=== PATIENT | male | born 1950 | race Caucasian/White ===

== ENCOUNTER 2020-08-28 13:41 | Emergency (ER) | payer OTHER ==
[2020-08-28 14:15] LABS: BASOPHIL 0.8 % (0-2); EOSINOPHIL 3.1 % (0-7); HCT 42.7 % (42.0-52.0); HGB 14.6 g/dl (13.2-18.0); LYMPHOCYTE 23.5 % (15-48); MCH 29.8 pg (25.0-31.0); MCHC 34.2 g/dL (32.0-36.0); MCV 87.1 fL (78.0-100.0); MONOCYTE 6.9 % (0-12); MPV 10.5 fL (6.0-9.5); NEUTROPHIL 64.2 % (41-80); NRBC 0; PLT 253 K/uL (150-400); RDW 11.9 % (11.5-14.0)
[2020-08-28 14:24] LABS: INR 1.18 (0.9-1.2); PROTHROMBIN TIME 14.2 SECONDS (11.4-13.6); PTT 30.1 SECONDS (22.2-34.7)
[2020-08-28 14:25] LABS: D-DIMER 1.04 ug/mLFEU (0.00-0.41)
[2020-08-28 14:32] LABS: ALBUMIN 2.7 g/dL (3.4-5.0); BILIRUBIN - TOTAL 0.4 mg/dL (0.2-1.0); BUN/CREAT RATIO (CALC) 6.6 RATIO; C-REACTIVE PROTEIN 2.7 mg/dL (<=0.90); CREATININE 0.76 mg/dL (0.67-1.17); GLOBULIN (CALCULATION) 5.1 g/dL; POTASSIUM 3.2 mmol/L (3.5-5.1); TOTAL PROTEIN 7.8 g/dL (6.4-8.2)
[2020-08-28 14:39] LABS: PRO-BNP 181 pg/mL (<125)
[2020-08-28 15:13] LABS: CORONAVIRUS 2019 SARS-COV-2 NEGATIVE (NEGATIVE); INFLUENZA A NAA NEGATIVE (NEGATIVE)
[2020-08-28] MEDS ORDERED: MUCUS-ER MAX1200 MG PO (16:17)
[2020-08-28] MEDS ORDERED: MEDROL 4MG DOSEP4 MG PO (16:17)
[2020-08-28] MEDS ORDERED: VIBRAMYCIN100 MG PO (16:17)
== END 2020-08-28 16:34 | disposition home or self-care (01) ==
LOC: FER 13:41
PROVIDERS: Emergency Medicine
DX: J44.0 Chronic obstructive pulmonary disease with (acute) lower respiratory infection (principal); J18.1 Lobar pneumonia, unspecified organism; J44.1 Chronic obstructive pulmonary disease with (acute) exacerbation; R00.1 Bradycardia, unspecified; I10 Essential (primary) hypertension; I25.2 Old myocardial infarction; I25.10 Atherosclerotic heart disease of native coronary artery without angina pectoris; F17.200 Nicotine dependence, unspecified, uncomplicated; Z20.822 Contact with and (suspected) exposure to COVID-19; Z95.5 Presence of coronary angioplasty implant and graft; Z98.890 Other specified postprocedural states; Z79.82 Long term (current) use of aspirin; Z79.01 Long term (current) use of anticoagulants; Z79.899 Other long term (current) drug therapy
CPT/HCPCS: 36415; 36600; 71045; 71275; 80053; 82803; 83880; 84484; 85025; 85379; 85610; 85730; 86140; 87040; 93005; 94640; 94664; J2405; J2930; U0002

== ENCOUNTER 2021-03-21 10:16 | Emergency (ER) | payer MEDICARE ==
[~2021-03-21 10:16] MED LIST: MEDROL 4MG DOSEP4 MG PO; MUCUS-ER MAX1200 MG PO; VIBRAMYCIN100 MG PO
[2021-03-21 11:43] LABS: BASOPHIL 0.8 % (0-2); EOSINOPHIL 5.9 % (0-7); HCT 43.4 % (42.0-52.0); HGB 13.8 g/dl (13.2-18.0); LYMPHOCYTE 27.5 % (15-48); MCH 28.8 pg (25.0-31.0); MCHC 31.8 g/dL (32.0-36.0); MCV 90.4 fL (78.0-100.0); MONOCYTE 6.8 % (0-12); MPV 10.6 fL (6.0-9.5); NEUTROPHIL 58.2 % (41-80); NRBC 0; PLT 190 K/uL (150-400); RDW 12.7 % (11.5-14.0); WBC 8.3 K/uL (4.0-10.5)
[2021-03-21 12:06] LABS: BUN/CREAT RATIO (CALC) 11.5 RATIO; CREATININE 0.78 mg/dL (0.67-1.17); POTASSIUM 3.5 mmol/L (3.5-5.1)
[2021-03-21 12:13] LABS: LACTIC ACID 1.3 mmol/L (0.4-1.9)
[2021-03-21] MEDS ORDERED: AZITHROMYCIN250 MG PO (12:58)
[2021-03-21] MEDS ORDERED: PREDNISONE 20MG20 MG PO (12:58)
[2021-03-21] MEDS ORDERED: VENTOLIN HFA IN18 GM INH (12:59)
== END 2021-03-21 13:20 | disposition home or self-care (01) ==
LOC: FER 10:16
PROVIDERS: Emergency Medicine
DX: J44.1 Chronic obstructive pulmonary disease with (acute) exacerbation (principal); I25.10 Atherosclerotic heart disease of native coronary artery without angina pectoris; E11.9 Type 2 diabetes mellitus without complications; Z20.822 Contact with and (suspected) exposure to COVID-19; I10 Essential (primary) hypertension; F17.210 Nicotine dependence, cigarettes, uncomplicated
CPT/HCPCS: 36415; 71045; 80048; 83605; 85025; 94640; 94664; J2930; U0002